=== PATIENT | male | born 1960 | race Caucasian/White ===

== ENCOUNTER 2016-09-08 00:14 | Emergency (ER) | payer BC ==
[~2016-09-08] VITALS: Ht 177.8 cm; Wt 86.6 kg
[~2016-09-08 00:14] MED LIST: ADVIL PM1 CAP OR; ALPRAZOLAM0.5 MG PO; AMBIEN CR12.5 MG OR; AMBIEN10 MG PO; ANDROGEL1 % TD; ASPIRIN325 MG OR; ATIVAN1 M1 PO; BACLOFEN20 MG OR; BACTRIM DS1 TAB OR; BACTRIM DS1 TAB PO; CIALIS20 MG PO; CLONAZEP ODT1 MG PO; CLONAZEPAM2 MG OR; CYANOCOBALAM1000 MCG IJ; DEPO-TESTOS200 MG/M1 IM; DILAUDID4 MG PO; DILAUDID8 MG OR; DILAUDID8 MG PO; DOCUSATE CAL240 MG OR; DULCOLAX SS100 MG OR; DURAGESIC100 MCG/H TD; EFFEXOR XR150 MG PO; EFFEXOR25 MG OR; ELIDEL1 % EX; ENOXAPARIN40 MG/0.1 SC; FENTANYL100 MCG/H TD; FENTANYL25 MCG/HR TD; FLONASE NASAL50 MCG; FLUZONE SPLT1 M1 IM; GAVISCON PO; GUANFACINE1 MG OR; KLONOPIN1 MG OR; LEVAQUIN750 MG PO; LORAZEPAM0.5 MG PO; LOVENOX 3030 MG/0.3 SC; MILK OF MAG30 ML/UDC PO; MOBIC15 MG OR; MORPHINE SUL30 M3 PO; NEURONTIN300 MG OR; NEXIUM40 M1 OR; OMEPRAZOLE20 MG PO; OXYCODONE30 MG; OXYCODONE30 MG OR; PERCOCET 5/325M1 TAB PO; PROMETHAZINE HC25 MG PO; SAVELLA50 MG OR; SOMA350 MG PO; TRAZODONE HCL100 MG PO; TRAZODONE50 MG PO; TYLENOL PM OR; TYLENOL PM PO; VICODIN1 TAB OR; ZOFRAN ODT4 MG PO; ZOFRAN ODT8 MG OR; ZOFRAN4 MG OR; ZOFRAN4 MG/TAB PO; ZOSTAVAX IM; ZOVIRAX52 TOP; [UNRECOGNIZED DRUG - OTHER] OR; [UNRECOGNIZED DRUG - REMARK]
[2016-09-08 00:27] VITALS: BP 161/93
== END 2016-09-08 02:34 | disposition left against medical advice (07) | DRG 951 ==
LOC: ED 00:14 → LWOBS 02:34
DX: Z91.19 Patient's noncompliance with other medical treatment and regimen (principal)

== ENCOUNTER 2016-10-11 09:25 | Emergency (ER) | payer BC ==
[~2016-10-11] VITALS: Ht 177.8 cm; Wt 100.0 kg
[2016-10-11 10:47] LABS: HEMATOCRIT 41.3 % (39.0-50.0); HEMOGLOBIN 13.8 g/dl (14.0-18.0); IMMATURE GRANULOCYTES 1.1 % (0.0-1.0); MEAN CELL VOLUME 103.8 fL CALC (80.0-100.0); MEAN CORPUSCULAR HGB 34.7 pG CALC (26.0-32.0); MEAN CORPUSCULAR HGB CONC 33.4 g/L CALC (32.0-36.0); NEUT# 3.74 thou/uL (1.82-7.42); RED BLOOD COUNT 3.98 mill/uL (4.70-6.10); RED CELL DISTRI WIDTH 13.8 % (11.5-15.5)
[2016-10-11 11:01] LABS: ALBUMIN 4.1 g/dL (3.2-5.0); ALKALINE PHOSPHATASE 105 u/l (38-126); ANION GAP 14 (6-22 (CALC)); BILIRUBIN, TOTAL 0.5 mg/dL (0.0-1.4); BUN 16 mg/dL (9-20); BUN/CREATININE RATIO 25 (12-20 (CALC)); CALCIUM 9.3 mg/dL (8.4-10.2); CARBON DIOXIDE 33 mmol/l (22-30); CHLORIDE 97 mmol/l (95-108); CREATININE 0.6 mg/dL (0.7-1.3); GFR > 60 ML/MIN (>=60 (CALC)); GFR FOR AFR.AMER. > 60 ML/MIN (>=60 (CALC)); GLUCOSE 82 mg/dL (75-110); POTASSIUM 4.2 mmol/l (3.5-5.1); SGOT/AST 39 u/l (17-59); SGPT/ALT 16 u/l (21-72); SODIUM 139 mmol/l (137-146); TOTAL PROTEIN 8.2 g/dL (6.3-8.2)
[2016-10-11] MEDS ORDERED: FENTANYL50 MCG/HR TD (12:38)
[2016-10-11] MEDS ORDERED: OXYCODONE HCL5 MG PO (12:38)
[2016-10-11] MEDS ORDERED: RISPERIDONE2 MG PO (12:39)
[2016-10-11] MEDS ORDERED: BP (12:40)
[2016-10-11 13:58] LABS: URINE BILIRUBIN - DIPSTICK NEGATIVE (NEGATIVE); URINE BLOOD DIPSTICK NEGATIVE (NEGATIVE); URINE CLARITY CLEAR; URINE COLOR YELLOW; URINE GLUCOSE - DIPSTICK NEGATIVE (NEGATIVE); URINE KETONE NEGATIVE (NEGATIVE); URINE LEUK ESTERASE NEGATIVE (NEGATIVE); URINE NITRITE - DIPSTICK NEGATIVE (Negative); URINE PROTEIN - DIPSTICK NEGATIVE (NEG-TRACE); URINE UROBILINOGEN - DIPSTICK 0.2 E.U./dL (0.2)
[2016-10-11] MEDS ORDERED: NAPROSYN500 MG PO (14:48)
[2016-10-11 15:02] VITALS: BP 140/93
== END 2016-10-11 15:02 | disposition home or self-care (01) | DRG 92 ==
LOC: ED 09:25
PROVIDERS: Emergency Medicine
DX: G89.29 Other chronic pain (principal); F19.20 Other psychoactive substance dependence, uncomplicated; I10 Essential (primary) hypertension; M54.5 Low back pain; F41.1 Generalized anxiety disorder; F32.9 Major depressive disorder, single episode, unspecified; F17.210 Nicotine dependence, cigarettes, uncomplicated; Z96.641 Presence of right artificial hip joint
CPT/HCPCS: Q9967

== ENCOUNTER 2017-03-06 14:36 | Emergency (ER) | payer BC ==
[~2017-03-06] VITALS: Ht 177.8 cm; Wt 120.0 kg
[~2017-03-06 14:36] MED LIST changes: +BP; +FENTANYL50 MCG/HR TD; +NAPROSYN500 MG PO; +OXYCODONE HCL5 MG PO; +RISPERIDONE2 MG PO
[2017-03-06] MEDS ORDERED: PLAVIX75 MG PO (14:57)
[2017-03-06] MEDS ORDERED: EFFEXOR37.5 MG PO (14:58)
[2017-03-06 15:40] LABS: HEMOGLOBIN 12.2 g/dl (14.0-18.0); IMMATURE GRANULOCYTES 0.6 % (0.0-1.0); MEAN CELL VOLUME 99.2 fL CALC (80.0-100.0); MEAN CORPUSCULAR HGB 33.6 pG CALC (26.0-32.0); MEAN CORPUSCULAR HGB CONC 33.9 g/L CALC (32.0-36.0); NEUT# 7.54 thou/uL (1.82-7.42); RED BLOOD COUNT 3.63 mill/uL (4.70-6.10); RED CELL DISTRI WIDTH 12.7 % (11.5-15.5)
[2017-03-06 15:45] LABS: INTERNATIONAL NORMALIZED RATIO 0.9 RATIO (0.7-1.3)
[2017-03-06 15:47] LABS: ALBUMIN 3.9 g/dL (3.2-5.0); ALKALINE PHOSPHATASE 105 u/l (38-126); ANION GAP 15 (6-22 (CALC)); BILIRUBIN, TOTAL 0.4 mg/dL (0.0-1.4); BUN 9 mg/dL (9-20); BUN/CREATININE RATIO 14 (12-20 (CALC)); CALCIUM 9.3 mg/dL (8.4-10.2); CARBON DIOXIDE 25 mmol/l (22-30); CHLORIDE 105 mmol/l (95-108); CPK 64 u/l (52-200); CREATININE 0.6 mg/dL (0.7-1.3); GFR > 60 ML/MIN (>=60 (CALC)); GFR FOR AFR.AMER. > 60 ML/MIN (>=60 (CALC)); GLUCOSE 120 mg/dL (75-110); SGOT/AST 36 u/l (17-59); SGPT/ALT 34 u/l (21-72); SODIUM 141 mmol/l (137-146); TOTAL PROTEIN 7.1 g/dL (6.3-8.2)
[2017-03-06 15:59] LABS: MYOGLOBIN 41 ng/mL (0 - 121)
[2017-03-06 18:00] LABS: URINE BILIRUBIN - DIPSTICK NEGATIVE (NEGATIVE); URINE BLOOD DIPSTICK TRACE-INTACT (NEGATIVE); URINE CLARITY CLEAR; URINE COLOR YELLOW; URINE GLUCOSE - DIPSTICK NEGATIVE (NEGATIVE); URINE KETONE NEGATIVE (NEGATIVE); URINE LEUK ESTERASE NEGATIVE (Negative); URINE NITRITE - DIPSTICK NEGATIVE (Negative); URINE PROTEIN - DIPSTICK NEGATIVE (NEG-TRACE); URINE SPECIFIC GRAVITY >=1.030; URINE UROBILINOGEN - DIPSTICK 0.2 E.U./dL (0.2)
[2017-03-06 18:02] LABS: COCAINE NEGATIVE (NEGATIVE); METHADONE POSITIVE (NEGATIVE); TETRAHYDROCANNABIONOL POSITIVE (NEGATIVE); TRICYLIC ANTIDEPRESSANTS POSITIVE (NEGATIVE)
[2017-03-06 18:03] LABS: BARBITURATES NEGATIVE (NEGATIVE)
[2017-03-06 18:04] LABS: OXCYCODONE POSITIVE (NEGATIVE)
[2017-03-06 20:05] VITALS: BP 131/87
== END 2017-03-06 20:06 | DRG 536 ==
LOC: ED 14:36
PROVIDERS: Emergency Medicine
PROC: 2W3LX1Z Immobilization of Right Lower Extremity using Splint (ICD-10-PCS; principal; 2017-03-06)
DX: S72.001A Fracture of unspecified part of neck of right femur, initial encounter for closed fracture (principal); I10 Essential (primary) hypertension; F19.20 Other psychoactive substance dependence, uncomplicated; R07.81 Pleurodynia; F41.1 Generalized anxiety disorder; F32.9 Major depressive disorder, single episode, unspecified; G89.29 Other chronic pain; W11.XXXA Fall on and from ladder, initial encounter; Y93.H9 Activity, other involving exterior property and land maintenance, building and construction; Y92.008 Other place in unspecified non-institutional (private) residence as the place of occurrence of the external cause; Z96.653 Presence of artificial knee joint, bilateral; Z96.643 Presence of artificial hip joint, bilateral; Z96.612 Presence of left artificial shoulder joint; Z96.611 Presence of right artificial shoulder joint
CPT/HCPCS: Q9967

== ENCOUNTER 2018-03-06 10:19 | Emergency (ER) | payer BC ==
[~2018-03-06] VITALS: Ht 177.8 cm; Wt 87.3 kg
[~2018-03-06 10:19] MED LIST changes: +EFFEXOR37.5 MG PO; +PLAVIX75 MG PO
[2018-03-06 11:08] LABS: GFR > 60 ML/MIN (>=60 (CALC)); GFR FOR AFR.AMER. > 60 ML/MIN (>=60 (CALC))
[2018-03-06 11:12] LABS: HEMATOCRIT 41.8 % (39.0-50.0); IMMATURE GRANULOCYTES 0.8 % (0.0-5.0); MEAN CELL VOLUME 98.6 fL CALC (80.0-100.0); MEAN CORPUSCULAR HGB 33.7 pG CALC (26.0-32.0); MEAN CORPUSCULAR HGB CONC 34.2 g/L CALC (32.0-36.0); NEUT# 5.87 thou/uL (1.82-7.42); RED BLOOD COUNT 4.24 mill/uL (4.70-6.10); RED CELL DISTRI WIDTH 13.2 % (11.5-15.5)
[2018-03-06 11:14] LABS: HEMOGLOBIN 14.3 g/dl (14.0-18.0)
[2018-03-06] MEDS ORDERED: ASPIRIN81 MG PO (11:21)
[2018-03-06] MEDS ORDERED: AMLODIPINE2.5 MG PO (11:24)
[2018-03-06 11:37] LABS: ALBUMIN 4.4 g/dL (3.2-5.0); ALKALINE PHOSPHATASE 140 u/l (38-126); ANION GAP 15 (6-22 (CALC)); BILIRUBIN, TOTAL 0.3 mg/dL (0.0-1.4); BUN 13 mg/dL (9-20); BUN/CREATININE RATIO 18 (12-20 (CALC)); CARBON DIOXIDE 26 mmol/l (22-30); CHLORIDE 102 mmol/l (95-108); CREATININE 0.7 mg/dL (0.7-1.3); GFR > 60 ML/MIN (>=60 (CALC)); GFR FOR AFR.AMER. > 60 ML/MIN (>=60 (CALC)); LIPASE 21 u/l (23-300); POTASSIUM 3.8 mmol/l (3.5-5.1); SGOT/AST 22 u/l (17-59); SGPT/ALT 16 u/l (21-72); SODIUM 140 mmol/l (137-146); TOTAL PROTEIN 8.3 g/dL (6.3-8.2)
[2018-03-06 11:49] LABS: MYOGLOBIN 47 ng/mL (0 - 121)
[2018-03-06] MEDS ORDERED: ONDANSETRON4 MG PO (13:20)
[2018-03-06] MEDS ORDERED: PHENERGAN25 MG/TAB PO (13:20)
[2018-03-06] MEDS ORDERED: MUPIROCIN2 % EX (13:23)
[2018-03-06] MEDS ORDERED: OMNI-PAC300 MG PO (13:23)
[2018-03-06 13:52] VITALS: BP 109/80
[2018-03-06] MEDS ORDERED: FENTANYL50 MCG/HR TD (15:15)
[2018-03-06] MEDS ORDERED: AMLODIPINE BESY10 MG PO (15:16)
== END 2018-03-06 14:08 | disposition home or self-care (01) | DRG 605 ==
LOC: ED 10:19
PROVIDERS: Family Medicine
DX: S80.211A Abrasion, right knee, initial encounter (principal); S80.12XA Contusion of left lower leg, initial encounter; S30.1XXA Contusion of abdominal wall, initial encounter; I10 Essential (primary) hypertension; G89.29 Other chronic pain; F41.9 Anxiety disorder, unspecified; F32.9 Major depressive disorder, single episode, unspecified; F17.210 Nicotine dependence, cigarettes, uncomplicated; W20.8XXA Other cause of strike by thrown, projected or falling object, initial encounter; Y93.89 Activity, other specified; Y92.009 Unspecified place in unspecified non-institutional (private) residence as the place of occurrence of the external cause; Z96.653 Presence of artificial knee joint, bilateral
CPT/HCPCS: Q9967

== ENCOUNTER 2018-03-07 09:30 | Emergency (ER) | payer BC ==
[~2018-03-07] VITALS: Ht 177.8 cm; Wt 87.0 kg
[~2018-03-07 09:30] MED LIST changes: +AMLODIPINE BESY10 MG PO; +AMLODIPINE2.5 MG PO; +ASPIRIN81 MG PO; +MUPIROCIN2 % EX; +OMNI-PAC300 MG PO; +ONDANSETRON4 MG PO; +PHENERGAN25 MG/TAB PO
[2018-03-07 10:00] VITALS: BP 127/69
== END 2018-03-07 10:22 | disposition home or self-care (01) | DRG 950 ==
LOC: ED 09:30
DX: S80.211D Abrasion, right knee, subsequent encounter (principal); S30.1XXD Contusion of abdominal wall, subsequent encounter; S90.02XD Contusion of left ankle, subsequent encounter; S90.01XD Contusion of right ankle, subsequent encounter; S80.02XD Contusion of left knee, subsequent encounter; W20.8XXD Other cause of strike by thrown, projected or falling object, subsequent encounter; I10 Essential (primary) hypertension; F41.9 Anxiety disorder, unspecified; F43.29 Adjustment disorder with other symptoms

== ENCOUNTER 2019-03-08 10:00 | Emergency (ER) | payer BC ==
[~2019-03-08] VITALS: Ht 172.7 cm; Wt 88.0 kg
[2019-03-08] MEDS ORDERED: MORPHINE SUL30 M3 PO (10:17)
[2019-03-08] MEDS ORDERED: OMNI-PAC300 MG PO (10:42)
[2019-03-08 10:47] VITALS: BP 135/83
== END 2019-03-08 10:53 | disposition home or self-care (01) | DRG 605 ==
LOC: ED 10:00
PROC: 0HQFXZZ Repair Right Hand Skin, External Approach (ICD-10-PCS; principal; 2019-03-08)
DX: S61.210A Laceration without foreign body of right index finger without damage to nail, initial encounter (principal); S61.011A Laceration without foreign body of right thumb without damage to nail, initial encounter; I10 Essential (primary) hypertension; W29.3XXA Contact with powered garden and outdoor hand tools and machinery, initial encounter; Y93.H2 Activity, gardening and landscaping; Y92.007 Garden or yard of unspecified non-institutional (private) residence as the place of occurrence of the external cause

== ENCOUNTER 2019-03-20 23:44 | Emergency (ER) | payer BC ==
[~2019-03-20] VITALS: Ht 172.7 cm; Wt 90.0 kg
[2019-03-21 02:15] VITALS: BP 152/81
== END 2019-03-21 01:40 | disposition home or self-care (01) | DRG 605 ==
LOC: ED 23:44
PROC: 0HQ0XZZ Repair Scalp Skin, External Approach (ICD-10-PCS; principal; 2019-03-20)
DX: S01.01XA Laceration without foreign body of scalp, initial encounter (principal); I10 Essential (primary) hypertension; F17.210 Nicotine dependence, cigarettes, uncomplicated; W06.XXXA Fall from bed, initial encounter; Y92.003 Bedroom of unspecified non-institutional (private) residence as the place of occurrence of the external cause

== ENCOUNTER 2019-12-01 20:11 | Emergency (ER) | payer BC ==
[~2019-12-01] VITALS: Ht 172.7 cm; Wt 90.9 kg
[2019-12-01] MEDS ORDERED: NAPROSYN250 MG PO (21:56)
[2019-12-01 22:10] VITALS: BP 139/83
== END 2019-12-01 22:10 | disposition home or self-care (01) | DRG 566 ==
LOC: ED 20:11
DX: M79.5 Residual foreign body in soft tissue (principal); I10 Essential (primary) hypertension; F17.210 Nicotine dependence, cigarettes, uncomplicated

== ENCOUNTER 2020-07-10 12:15 | Emergency (ER) | payer BC ==
[~2020-07-10] VITALS: Ht 172.7 cm; Wt 86.0 kg
[~2020-07-10 12:15] MED LIST changes: +EFFEXOR XR75 MG/CAP PO; -EFFEXOR37.5 MG PO; +NAPROSYN250 MG PO
[2020-07-10] MEDS ORDERED: OXYCODONE10 M1 PO (13:33)
[2020-07-10] MEDS ORDERED: GABAPENTIN100 MG PO (13:33)
[2020-07-10 14:14] VITALS: BP 127/69
== END 2020-07-10 14:24 | disposition home or self-care (01) | DRG 866 ==
LOC: ED 12:15
DX: B34.9 Viral infection, unspecified (principal); I10 Essential (primary) hypertension; F41.9 Anxiety disorder, unspecified; F32.9 Major depressive disorder, single episode, unspecified; F17.200 Nicotine dependence, unspecified, uncomplicated; Z20.822 Contact with and (suspected) exposure to COVID-19

== ENCOUNTER 2021-08-22 11:30 | Observation (INO) | payer BC ==
[2021-08-22] VITALS (18 sets, daily range): BP systolic 109–158; BP diastolic 65–129
[~2021-08-22] VITALS: Ht 172.7 cm; Wt 87.0 kg
[~2021-08-22 11:30] MED LIST changes: -EFFEXOR XR75 MG/CAP PO; +GABAPENTIN100 MG PO; +OXYCODONE15 MG PO
[2021-08-22 12:14] LABS: HEMOGLOBIN 14.4 g/dl (14.0-18.0); IMMATURE GRANULOCYTES 0.2 % (0.0-5.0); MEAN CELL VOLUME 102.6 fL CALC (80.0-100.0); MEAN CORPUSCULAR HGB 33.6 pG CALC (26.0-32.0); MEAN CORPUSCULAR HGB CONC 32.7 g/dL CAL (32.0-36.0); NEUT# 4.88 thou/uL (1.82-7.42); RED BLOOD COUNT 4.29 mill/uL (4.70-6.10); RED CELL DISTRI WIDTH 13.3 % (11.5-15.5)
[2021-08-22 12:38] LABS: ALKALINE PHOSPHATASE 132 u/l (38-126); ANION GAP 13 (6-22 (CALC)); BILIRUBIN, TOTAL 0.2 mg/dL (0.0-1.4); BUN 12 mg/dL (8-23); BUN/CREATININE RATIO 21 (12-20 (CALC)); CARBON DIOXIDE 29 mmol/l (22-30); CHLORIDE 101 mmol/l (95-108); CREATININE 0.6 mg/dL (0.7-1.3); GFR > 60 ML/MIN (>=60 (CALC)); GFR FOR AFR.AMER. > 60 ML/MIN (>=60 (CALC)); POTASSIUM 3.9 mmol/l (3.5-5.1); SGOT/AST 21 u/l (19-48); SODIUM 140 mmol/l (137-146); TOTAL PROTEIN 7.5 g/dL (6.3-8.2)
[2021-08-22] MEDS ORDERED: GABAPENTIN600 MG PO (15:39)
[2021-08-22] MEDS ORDERED: CYANOCOBAL1000 MCG/M IM (15:50)
[2021-08-22] MEDS ORDERED: REPATHA140 MG/ML SC (15:53)
[2021-08-22] MEDS ORDERED: ZOLPIDEM5 M1 PO (16:06)
[2021-08-23] VITALS (7 sets, daily range): BP systolic 107–131; BP diastolic 57–88
[2021-08-23 06:14] LABS: HEMATOCRIT 41.6 % (39.0-50.0); HEMOGLOBIN 13.7 g/dl (14.0-18.0); MEAN CORPUSCULAR HGB 33.9 pG CALC (26.0-32.0); MEAN CORPUSCULAR HGB CONC 32.9 g/dL CAL (32.0-36.0); RED BLOOD COUNT 4.04 mill/uL (4.70-6.10); RED CELL DISTRI WIDTH 13.2 % (11.5-15.5)
[2021-08-23 06:41] LABS: ANION GAP 11 (6-22 (CALC)); BUN 7 mg/dL (8-23); BUN/CREATININE RATIO 12 (12-20 (CALC)); CALCULATED LDLCHOLESTEROL 1 mg/dL (62-129 (CALC)); CARBON DIOXIDE 26 mmol/l (22-30); CHLORIDE 105 mmol/l (95-108); CREATININE 0.6 mg/dL (0.7-1.3); GFR > 60 ML/MIN (>=60 (CALC)); GFR FOR AFR.AMER. > 60 ML/MIN (>=60 (CALC)); HDL CHOLESTEROL 29 mg/dL (>=40); MAGNESIUM 1.9 mg/dL (1.6-2.3); POTASSIUM 3.8 mmol/l (3.5-5.1); SODIUM 138 mmol/l (137-146); TOTAL TRIGLYCERIDES 261 mg/dl (30-149); VLDL CHOLESTROL 52 mg/dl (4-45 (CALC))
[2021-08-23 06:46] LABS: CHOLESTEROL HDL RATIO 2.8 (<4.4 (CALC)); TOTAL CHOLESTEROL 82 mg/dl (0-199)
[2021-08-24 00:15] VITALS: BP 137/80
[2021-08-24 05:32] VITALS: BP 145/78
[2021-08-24 06:32] LABS: HEMATOCRIT 43.5 % (39.0-50.0); HEMOGLOBIN 14.4 g/dl (14.0-18.0); MEAN CORPUSCULAR HGB 33.1 pG CALC (26.0-32.0); MEAN CORPUSCULAR HGB CONC 33.1 g/dL CAL (32.0-36.0); RED BLOOD COUNT 4.35 mill/uL (4.70-6.10); RED CELL DISTRI WIDTH 12.9 % (11.5-15.5)
[2021-08-24 06:43] LABS: ANION GAP 13 (6-22 (CALC)); BUN 8 mg/dL (8-23); BUN/CREATININE RATIO 16 (12-20 (CALC)); CARBON DIOXIDE 27 mmol/l (22-30); CHLORIDE 103 mmol/l (95-108); CREATININE 0.5 mg/dL (0.7-1.3); GFR > 60 ML/MIN (>=60 (CALC)); GFR FOR AFR.AMER. > 60 ML/MIN (>=60 (CALC)); SODIUM 138 mmol/l (137-146)
[2021-08-24 10:47] VITALS: BP 132/83
[2021-08-24] MEDS ORDERED: LEVAQUIN750 M1 PO (12:30)
== END 2021-08-24 13:28 | disposition home or self-care (01) | DRG 195 ==
LOC: ED 11:30 → ED-I 13:56 → ED 14:30 → MS2 14:31
PROVIDERS: Family Medicine; Nurse Practitioner; ADMIT Internal Medicine; ATTEND Internal Medicine
DX: J18.9 Pneumonia, unspecified organism (principal); R09.02 Hypoxemia; I10 Essential (primary) hypertension; G89.4 Chronic pain syndrome; F41.9 Anxiety disorder, unspecified; F32.A Depression, unspecified; G43.909 Migraine, unspecified, not intractable, without status migrainosus; F17.200 Nicotine dependence, unspecified, uncomplicated; Z20.822 Contact with and (suspected) exposure to COVID-19
CPT/HCPCS: G0378; J1650; Q9967

== ENCOUNTER 2021-11-04 22:11 | Emergency (ER) | payer BC ==
[~2021-11-04] VITALS: Ht 172.7 cm; Wt 90.0 kg
[~2021-11-04 22:11] MED LIST changes: +CYANOCOBAL1000 MCG/M IM; +GABAPENTIN600 MG PO; +LEVAQUIN750 M1 PO; +REPATHA140 MG/ML SC; +ZOLPIDEM5 M1 PO
[2021-11-04 22:43] LABS: HEMOGLOBIN 13.4 g/dl (14.0-18.0); IMMATURE GRANULOCYTES 0.6 % (0.0-5.0); MEAN CELL VOLUME 100.3 fL CALC (80.0-100.0); MEAN CORPUSCULAR HGB 33.6 pG CALC (26.0-32.0); MEAN CORPUSCULAR HGB CONC 33.5 g/dL CAL (32.0-36.0); NEUT# 3.05 thou/uL (1.82-7.42); RED BLOOD COUNT 3.99 mill/uL (4.70-6.10); RED CELL DISTRI WIDTH 13.7 % (11.5-15.5)
[2021-11-04 22:59] LABS: ALBUMIN 4.2 g/dL (3.2-5.0); ALKALINE PHOSPHATASE 101 u/l (38-126); AMYLASE 98 u/l (30-110); ANION GAP 15 (6-22 (CALC)); BILIRUBIN, TOTAL 0.2 mg/dL (0.0-1.4); BUN 11 mg/dL (8-23); BUN/CREATININE RATIO 16 (12-20 (CALC)); CARBON DIOXIDE 27 mmol/l (22-30); CHLORIDE 100 mmol/l (95-108); CREATININE 0.7 mg/dL (0.7-1.3); D-DIMER 0.42 mg/L (0.19-0.60); GFR > 60 ML/MIN (>=60 (CALC)); GFR FOR AFR.AMER. > 60 ML/MIN (>=60 (CALC)); LIPASE 27 u/l (23-300); POTASSIUM 3.8 mmol/l (3.5-5.1); SGOT/AST 20 u/l (19-48); SODIUM 138 mmol/l (137-146); TOTAL PROTEIN 7.4 g/dL (6.3-8.2)
[2021-11-04 23:01] VITALS: BP 130/74
[2021-11-04 23:03] LABS: ACT PARTIAL THROMBO TIME 28.9 SECONDS (20.0-32.5)
[2021-11-04 23:11] LABS: MYOGLOBIN 19 ng/mL (0 - 121)
[2021-11-04 23:30] VITALS: BP 126/75
[2021-11-04 23:33] VITALS: BP 120/80
[2021-11-04] MEDS ORDERED: BUSPIRONE10 MG PO (23:45)
[2021-11-04] MEDS ORDERED: TORADOL PO (23:46)
[2021-11-04 23:59] VITALS: BP 120/80
== END 2021-11-04 23:59 | disposition home or self-care (01) | DRG 206 ==
LOC: ED 22:11
PROVIDERS: Family Medicine
DX: M94.0 Chondrocostal junction syndrome [Tietze] (principal); I10 Essential (primary) hypertension; F41.9 Anxiety disorder, unspecified; F32.A Depression, unspecified; F17.200 Nicotine dependence, unspecified, uncomplicated; Z20.822 Contact with and (suspected) exposure to COVID-19

== ENCOUNTER 2021-11-15 12:14 | Emergency (ER) | payer BC ==
[~2021-11-15] VITALS: Ht 170.2 cm; Wt 90.9 kg
[~2021-11-15 12:14] MED LIST changes: +BUSPIRONE10 MG PO; +TORADOL PO
[2021-11-15 12:38] VITALS: BP 129/65
[2021-11-15 13:00] VITALS: BP 138/75
[2021-11-15 13:33] VITALS: BP 141/79
[2021-11-15] MEDS ORDERED: CYCLOBENZAPRINE10 MG PO (14:28)
[2021-11-15] MEDS ORDERED: NAPROXEN500 MG PO (14:28)
[2021-11-15] MEDS ORDERED: MEDDOSEPAK PO (14:28)
[2021-11-15 14:37] VITALS: BP 141/79
== END 2021-11-15 14:55 | disposition home or self-care (01) | DRG 552 ==
LOC: ED 12:14
DX: M54.50 Low back pain, unspecified (principal); G89.29 Other chronic pain; R20.2 Paresthesia of skin; I10 Essential (primary) hypertension; F41.9 Anxiety disorder, unspecified; F32.A Depression, unspecified; F17.200 Nicotine dependence, unspecified, uncomplicated

== ENCOUNTER 2023-12-31 17:45 | Emergency (ER) | payer MEDICARE, BC ==
[~2023-12-31] VITALS: Ht 170.2 cm; Wt 90.0 kg
[~2023-12-31 17:45] MED LIST changes: +CYCLOBENZAPRINE10 MG PO; +MEDDOSEPAK PO; +NAPROXEN500 MG PO
[2023-12-31] MEDS ORDERED: HYDROmorphone HCL 2 MG/AMP IM ONE (19:20)
[2023-12-31 23:23] VITALS: BP 127/80
== END 2023-12-31 23:23 | disposition home or self-care (01) ==
LOC: ED 17:45
PROC: 2W3DX1Z Immobilization of Left Lower Arm using Splint (ICD-10-PCS; principal; 2023-12-31)
DX: S52.502A Unspecified fracture of the lower end of left radius, initial encounter for closed fracture (principal); I10 Essential (primary) hypertension; F41.9 Anxiety disorder, unspecified; F32.A Depression, unspecified; F17.200 Nicotine dependence, unspecified, uncomplicated; W23.2XXA Caught, crushed, jammed or pinched between a moving and stationary object, initial encounter; Y92.89 Other specified places as the place of occurrence of the external cause